=== PATIENT | female | born 1995 | race Caucasian/White ===

== ENCOUNTER 2018-01-11 22:29 | Emergency (ER) | payer MEDICAID ==
[~2018-01-11] VITALS: Ht 165.1 cm; Wt 177.0 kg
[~2018-01-11 22:29] MED LIST: ACET-2119 PO; BENZ60GE TOP; BUDE180A INH; CETI10TA18 PO; DEXT1CAP3 PO; DEXT5SYR PO; ESZO3TAB32 PO; FLUT16SP2 BOTHNARES; LITH300C; LITH300T34 PO; MELA5TAB12 PO; MONO-LINYAH PO; NORG1TAB80 PO; OLAN10TA3 PO; OLAN15TA3; OMEPRAZOLE PO; TRAZ-143 PO
[2018-01-11 22:53] VITALS: BP 158/120
[2018-01-12] MEDS ORDERED: NITR100C6 PO (09:36)
== END 2018-01-11 22:54 | disposition home or self-care (01) ==
LOC: ER 22:29
DX: M62.838 Other muscle spasm (principal); T43.595A Adverse effect of other antipsychotics and neuroleptics, initial encounter; Z88.8 Allergy status to other drugs, medicaments and biological substances; Z79.899 Other long term (current) drug therapy; Z98.890 Other specified postprocedural states; Y92.89 Other specified places as the place of occurrence of the external cause
CPT/HCPCS: 99283

== ENCOUNTER 2018-01-12 07:41 | Emergency (ER) | payer MEDICAID ==
[~2018-01-12] VITALS: Ht 165.1 cm; Wt 80.5 kg
[2018-01-12 07:54] VITALS: BP 149/89
[2018-01-12 08:26] LABS: BASOPHILS % (AUTO) 0.3 % (0-1); EOSINOPHILS # (AUTO) 0.5 X10'3 (0-0.9); EOSINOPHILS % (AUTO) 3.3 % (0-6); HEMOGLOBIN 11.8 g/dl (12.0-16.0); LYMPHOCYTES # (AUTO) 1.7 X10'3 (1.1-4.8); LYMPHOCYTES % (AUTO) 11.5 % (21-51); MEAN CORPUSCULAR HEMOGLOBIN 29.8 PG (27.0-31.0); MEAN CORPUSCULAR HGB CONC 34.6 % (33.0-36.5); MEAN CORPUSCULAR VOLUME 86.1 FL (78-98); MONOCYTES # (AUTO) 0.9 X10'3 (0-0.9); MONOCYTES % (AUTO) 6.2 % (2-12); NEUTROPHILS # (AUTO) 11.9 X10'3 (1.8-7.7); NEUTROPHILS % (AUTO) 78.7 % (42-75); PLATELET COUNT 428 X10'3 (140-440); RED BLOOD COUNT 3.95 X10'6 (4.20-5.60); RED CELL DISTRIBUTION WIDTH 14.3 % (11.5-14.5); WHITE BLOOD COUNT 15.1 X10'3 (4.5-11.0)
[2018-01-12 08:50] LABS: ACETAMINOPHEN < 2.0 UG/ML (10-30); ALANINE AMINOTRANSFERASE 20 U/L (12-78); ALBUMIN 3.1 G/DL (3.4-5.0); ALBUMIN/GLOBULIN RATIO 0.7 (1.1-1.5); ALKALINE PHOSPHATASE 96 IU/L (46-116); ANION GAP 9 (8-16); ASPARTATE AMINO TRANSFERASE 13 U/L (10-37); BILIRUBIN,TOTAL 0.4 MG/DL (0.1-1.0); BLOOD UREA NITROGEN 6 MG/DL (7-18); BUN/CREATININE RATIO 7.7 (6.6-38.0); CALCIUM 8.9 MG/DL (8.5-10.1); CHLORIDE 105 MMOL/L (99-107); CREATININE 0.78 MG/DL (0.40-0.90); ETHANOL < 0.010 GM/DL (0.0-0.010); GLUCOSE 132 MG/DL (70-104); POTASSIUM 3.5 MMOL/L (3.5-5.1); SODIUM 140 MMOL/L (135-145); TOTAL CARBON DIOXIDE 25.7 MMOL/L (24-32); TOTAL PROTEIN 7.6 G/DL (6.4-8.2); eGFR > 90 ML/MIN
[2018-01-12 09:10] LABS: URINE HCG NEGATIVE (NEG)
[2018-01-12 09:11] LABS: CLARITY,URINE SLIGHTLY CLOUDY (Clear); COLOR,URINE STRAW (Yellow); GLUCOSE, URINE NEGATIVE (Neg); KETONES,URINE NEGATIVE (Neg); LEUKOCYTE ESTERASE ,URINE NEGATIVE (Neg); NITRITES, URINE NEGATIVE (Neg); OCCULT BLOOD,URINE NEGATIVE (Neg); PROTEIN,URINE NEGATIVE (Neg); UA COLLECTION TYPE CLN CATCH MIDSTREAM; UROBILINOGEN,URINE 0.2 E.U/dL (0.2-1.0)
[2018-01-12 09:17] LABS: SQUAMOUS EPITHELIAL CELL,UR MANY /LPF (FEW)
[2018-01-12 09:19] LABS: BACTERIA,URINE 3+ /HPF (Neg); MUCUS STRANDS NONE SEEN /LPF (Neg); RBC,URINE 0-2 /HPF (0-2); TRANSITIONAL EPI CELLS,URINE FEW /HPF; WBC,URINE 0-4 /HPF (0-4)
[2018-01-12] MEDS ORDERED: NITR100C6 PO (09:36)
[2018-01-12] MEDS ORDERED: nitrofuran/nitrofuran macrocrysal 100 MG capsule PO ONE (09:40)
[2018-01-12 09:44] LABS: URINE AMPHETAMINE SCREEN NEGATIVE (Neg); URINE BARBITUATE SCREEN NEGATIVE (Neg); URINE BENZODIAZEPINES SCREEN NEGATIVE (Neg); URINE CANNABINOID SCREEN NEGATIVE (Neg); URINE COCAINE SCREEN NEGATIVE (Neg); URINE METHADONE SCREEN NEGATIVE (Neg); URINE OPIATE SCREEN NEGATIVE (Neg); URINE PHENCYCLIDINE SCREEN NEGATIVE (Neg)
[2018-01-12] MEDS ORDERED: BENZOYL PEROXIDE TOP PRN (12:15)
[2018-01-12] MEDS ORDERED: lithium carbonate 150mg capsule PO SCH (12:30)
[2018-01-12] MEDS ORDERED: olanzapine 10mg tablet PO SCH (20:00)
[2018-01-12] MEDS ORDERED: traZODone 50mg tablet PO SCH (21:00)
[2018-01-13] MEDS ORDERED: pantoprazole 40mg Tablet.DR PO SCH (07:30)
[2018-01-13] MEDS ORDERED: NEUDEXTA PO SCH (08:00)
[2018-01-13] MEDS ORDERED: MONO LINYAH PO SCH (08:00)
[2018-01-13] MEDS ORDERED: fluticasone furoate 100MCG/puff inhaler IH SCH (08:00)
[2018-01-13] MEDS ORDERED: fluticasone nasal spray 16GM bottle NS SCH (08:00)
[2018-01-13] MEDS ORDERED: cetirizine 10mg tablet PO SCH (08:00)
== END 2018-01-12 12:42 | disposition home or self-care (01) ==
LOC: ER 07:42
DX: R45.851 Suicidal ideations (principal); N39.0 Urinary tract infection, site not specified; F20.9 Schizophrenia, unspecified; F31.9 Bipolar disorder, unspecified; Z60.2 Problems related to living alone; Z98.890 Other specified postprocedural states; Z88.8 Allergy status to other drugs, medicaments and biological substances; Z79.899 Other long term (current) drug therapy
CPT/HCPCS: 36415; 80053; 80305; 80320; 80329; 81001; 81025; 84443; 85025; 99284